=== PATIENT | female | born 1975 | race Caucasian/White ===

== ENCOUNTER 2016-11-17 23:08 | Emergency (ER) | payer BC ==
[2016-11-18 04:26] LABS: HEMOGLOBIN 13.2 gm/dl (12.3-15.3); RED BLOOD COUNT 4.37 M/UL (4.00-5.10); WHITE BLOOD COUNT 7.7 K/UL (4.5-11.0)
[2016-11-18 04:47] LABS: BUN/CREATININE RATIO 16 (0-10)
== END 2016-11-18 05:45 | disposition home or self-care (01) ==
LOC: ER1 23:08
PROVIDERS: Specialist/Technologist Athletic Trainer
DX: R07.9 Chest pain, unspecified (principal); F41.9 Anxiety disorder, unspecified; Z90.49 Acquired absence of other specified parts of digestive tract; Z79.899 Other long term (current) drug therapy; Z88.0 Allergy status to penicillin
CPT/HCPCS: 36415; 71010; 80053; 82550; 82553; 83874; 84484; 84703; 85025; 85379; 93005; 99285

== ENCOUNTER → 2021-01-05 | Outpatient (CLI) | payer BC ==
[~2021-01-05] MED LIST: ANTIVERT 25MG T25 MG PO; FLEXERIL 10 MG10 MG PO; FLEXERIL PO; IBUPROFEN PO; IBUPROFEN200 MG PO; IBUPROFEN600 MG PO; LORTAB 5-325 M1 EACH PO; MECLIZINE HCL25 MG PO; MICROZIDE12.5 MG PO; MUCINEX D PO; NAPROSYN PO; NAPROSYN500 MG PO; NORCO 5-325 TA1 EACH PO; TYLENOL PO; VALIUM 5 MG TAB5 MG PO; VALIUM PO; VALIUM5 MG PO; ZOFRAN8 MG PO; [UNRECOGNIZED DRUG - CODE] PO
== END ==
LOC: KOH-I 14:26
DX: H83.12 Labyrinthine fistula, left ear (principal)
CPT/HCPCS: 70480